=== PATIENT | female | born 1960 | race Caucasian/White ===

== ENCOUNTER 2020-05-09 07:45 | Outpatient (REF) | payer BC, SELFPAY ==
--- NOTE | 2020-05-09 07:52 | US_ITS ---
EXAMINATION: US THYROID CLINICAL INFORMATION: Thyroid nodule. COMPARISON: Ultrasound soft tissue head/neck thyroid dated 05/05/2019 and 12/19/2014 TECHNIQUE: Linear transducer charles-scale and color Doppler examination with attention to the region of the thyroid. FINDINGS: SIZE: Measurements of the thyroid lobes and nodules are given in sagittal, anteroposterior and transverse dimensions respectively. Right Thyroid Lobe: 5.1 x 1.7 x 1.6 cm, volume 7.2 mL. Previously 5.3 x 1.2 x 1.9 cm, volume 6.3 mL. Parenchyma: The gland echotexture is homogeneous. Thyroid vascularity is normal. Left Thyroid Lobe: 4.7 x 1.3 x 1.2 cm, volume 3.8 mL. Previously 4.7 x 1.4 x 1.1 cm, volume 3.8 mL. Parenchyma: The gland echotexture is homogeneous. Thyroid vascularity is normal. Isthmus: 0.37 cm in maximum AP dimension. Previously 0.34 cm. RIGHT THYROID LOBE: There are 2 nodules seen. 1. Location: Inferior. Size: 1.0 x 4.2 x 0.72 cm. Previous: 0.77 x 0.40 x 0.54 cm. Nodule characteristics: Heterogeneous, smoothly marginated and intranodular flow. 2. Location: Superior. Size: 0.43 x 0.40 x 0.45 cm. This nodule is new. Nodule characteristics: Heterogeneous, smoothly marginated with echogenic calcifications and intranodular flow. ISTHMUS: No nodules. LEFT THYROID LOBE: No nodules. NODES: No lymphadenopathy is seen in the tissue surrounding the thyroid gland. US/US thyroid IMPRESSION: Homogeneous mildly enlarged right thyroid lobe with subcentimeter small thyroid nodules in right lower lobe with minimal change in the largest nodule lower pole. Recommend continued ultrasound followup.
== END 2020-05-09 07:46 | disposition home or self-care (01) ==
LOC: HO.US 07:45
PROVIDERS: Visit Provider Nurse Practitioner Gerontology
DX: E04.1 Nontoxic single thyroid nodule (principal)
CPT/HCPCS: 76536

== ENCOUNTER → 2020-07-30 07:29 | Outpatient (BNVA) | payer BC, SELFPAY | PROVIDERS: PCP Internal Medicine; Visit Provider Internal Medicine Endocrinology, Diabetes & Metabolism ==

== ENCOUNTER 2020-08-23 08:28 | Outpatient (REF) | payer BC, SELFPAY ==
[2020-08-23 12:18] LABS: Free T4 (Free Thyroxine) 0.96 ng/dL (0.71-1.85)
[2020-08-26 16:52] LABS: Zinc 79 mcg/dL (60-130)
== END 2020-08-23 08:29 | disposition home or self-care (01) ==
LOC: HO.HMGCLDS 08:28
PROVIDERS: PCP Internal Medicine; Visit Provider Internal Medicine Endocrinology, Diabetes & Metabolism
DX: E03.9 Hypothyroidism, unspecified (principal); L65.9 Nonscarring hair loss, unspecified
CPT/HCPCS: 36415; 84439; 84443; 84630

== ENCOUNTER 2021-02-18 14:09 | Outpatient (REF) | payer BC, SELFPAY ==
[2021-02-18 15:03] LABS: Influenza A PCR NEGATIVE (Negative); Influenza B PCR NEGATIVE (Negative); Resp Syncy Virus RNA Qual PCR NEGATIVE (Negative); SARS COV2 PCR INHOUSE NEGATIVE (Negative)
== END 2021-02-18 14:10 | disposition home or self-care (01) ==
LOC: HO.LNP 14:09
PROVIDERS: Visit Provider Internal Medicine
DX: R43.9 Unspecified disturbances of smell and taste (principal); Z20.822 Contact with and (suspected) exposure to COVID-19
CPT/HCPCS: 0241U

== ENCOUNTER 2021-02-21 11:42 | Outpatient (REF) | payer BC, SELFPAY ==
[2021-02-21 12:57] LABS: Influenza A PCR NEGATIVE (Negative); Influenza B PCR NEGATIVE (Negative); Resp Syncy Virus RNA Qual PCR NEGATIVE (Negative); SARS COV2 PCR INHOUSE NEGATIVE (Negative)
== END 2021-02-21 11:43 | disposition home or self-care (01) ==
LOC: HO.LNP 11:42
PROVIDERS: Visit Provider Physician Assistant Medical
DX: Z20.822 Contact with and (suspected) exposure to COVID-19 (principal); J06.9 Acute upper respiratory infection, unspecified
CPT/HCPCS: 0241U

== ENCOUNTER 2021-12-18 15:13 | Outpatient (REF) | payer BC, SELFPAY ==
--- NOTE | ~2021-12-18 | US_ITS ---
EXAMINATION: US THYROID CLINICAL INFORMATION: Nontoxic multinodular goiter. COMPARISON: US thyroid 05/09/2020 and 05/05/2019. TECHNIQUE: Linear transducer grayscale and color Doppler examination with attention to the region of the thyroid. FINDINGS: SIZE: Measurements of the thyroid lobes and nodules are given in sagittal, anteroposterior and transverse dimensions respectively. Right Thyroid Lobe: 5.5 x 1.3 x 1.7 cm, volume 6.4 mL. Previously 5.1 x 1.7 x 1.6 cm, volume 7.2 mL. Parenchyma: The gland echotexture is homogeneous. Thyroid vascularity is normal. Left Thyroid Lobe: 4.4 x 1.4 x 1.2 cm, volume 3.9 mL. Previously 4.7 x 1.3 x 1.2 cm, volume 3.8 mL. Parenchyma: The gland echotexture is homogeneous. Thyroid vascularity is mildly increased. Isthmus: 0.3 cm in maximum AP dimension. Previously 0.4 cm. Estimated total number of nodules greater than or equal to 1 cm: 0. Therapeutic Dietitian nodules are described as follows: 1. Location: Inferior right isthmus. Size: 0.9 x 0.4 x 0.7 cm, volume 0.16 mL. Previously: 1.0 x 0.4 x 0.2 cm, volume 0.04 mL. Nodule characteristics: Composition: Solid (2). Echogenicity: Hypoechoic (2). Shape: Not taller than wide (0). Margins: Smooth (0). Echogenic Foci: None (0). ACR TI-RADS total points: 4 ACR TI-RADS category: 4 Change: No significant change from prior. NODES: No lymphadenopathy is seen in the tissue surrounding the thyroid gland. US/US thyroid IMPRESSION: -Thyroid normal in size. No adjacent adenopathy. -0.9 cm nodule inferior right isthmus (TI-RADS 4), no significant change. Reference: TR4 (4-6 points) -FNA if 1.5 cm or greater maximal dimension. -US followup in 1, 2, 3, and 5 years if 1.0 - 1.4 cm maximal dimension. -No followup if under 1.0 cm maximal dimension.
== END 2021-12-18 15:14 | disposition home or self-care (01) ==
LOC: HO.HMGCX 15:13
PROVIDERS: Visit Provider Internal Medicine Endocrinology, Diabetes & Metabolism
DX: E04.2 Nontoxic multinodular goiter (principal); E03.9 Hypothyroidism, unspecified
CPT/HCPCS: 76536

== ENCOUNTER 2021-12-20 07:13 | Outpatient (REF) | payer BC, SELFPAY ==
[2021-12-20 12:34] LABS: Free T4 (Free Thyroxine) 1.05 ng/dL (0.71-1.85)
== END 2021-12-20 07:14 | disposition home or self-care (01) ==
LOC: HO.HMGCLDS 07:13
PROVIDERS: PCP Internal Medicine; Visit Provider Internal Medicine Endocrinology, Diabetes & Metabolism
DX: E03.9 Hypothyroidism, unspecified (principal); E04.1 Nontoxic single thyroid nodule
CPT/HCPCS: 36415; 84439; 84443

== ENCOUNTER 2023-10-26 14:11 | Outpatient (AMB) | payer BC, SELFPAY ==
[2023-10-26 14:20] VITALS: BP 130/70; PULSE 88; TEMP 36.4; O2SAT 100
--- NOTE | 2023-10-26 14:20 | MHC.OFFWIV ---
Intake Vital Signs 10/26/23 14:20 Height 5 ft 7 in BP 130/70 Blood Pressure Location Rt brachial Position Sitting Pulse 88 Pulse Source Pulse Oximeter Temp 97.6 F Temp Source Temporal Artery Scan Pulse Oximetry (%) 100 Intake Visit Reasons: EP Itchy, scratchy, sore eyes Intake Note: pt is here for itchy, and sore eyes Patient Tobacco Use Status: Never used Tobacco Allergies No Known Allergies [No Known Allergies*] Allergy (Verified 10/26/23 14:36) Medication List - Last Reconciled 10/26/23 by MIKHAIL Juan fluticasone propionate 50 mcg/actuation (Flonase Allergy Relief) 2 sprays intranasal DAILY oxybutynin chloride ER 15 mg PO BID Do you need a note to return to daycare/school/sports/work: No HPI HPI Comments History of Present Illness Details Patient is a 63-year-old female in today for a sick visit patient reports that for the past 3 days she has developed dry, scratchy eyes. Patient has utilized aloe a eyedrops with no relief. Has no history of the same. Denies vision change. Denies headache. Patient also reports stuffy nose, postnasal drip, sore throat. In office strep test was negative. Will obtain URI swab. Patient at home medications are fluticasone in oxybutynin 15 mg p.o. b.i.d. [facility] Medical History (Updated 10/26/23 @ 15:12 by MIKHAIL Juan) Hair loss Thyroid nodule Hypothyroidism (acquired) Surgical History History of bladder surgery Hx of breast reduction, elective Family History Father Diabetes Mother COPD (chronic obstructive pulmonary disease) Ulcerative colitis IBS (irritable bowel syndrome) Social History Household Members: None Housing: Condominium Are you a primary chronic care nurse to a significant other at home: No Do you presently have visiting nurse or other home services: No 75 years or older and lives alone: No Alcohol intake: current Patient Tobacco Use Status: Never used Tobacco Review of Systems Const All systems reviewed & are unremarkable except as noted in HPI and below Denies chills, Denies fever(s) and Denies headache(s) Eyes Denies blurry vision, Denies eye discharge, Reports dry eyes, Reports itchy eyes and Reports other (redness) ENT Denies dizziness, Denies headache(s), Reports post nasal drip and Reports sore throat Card Denies chest pain and Denies dyspnea Resp Denies dyspnea Neuro Denies dizziness and Denies headache(s) Aller/Immun Reports itchy eyes Physical Exam Vital Signs: Last Vital Signs Temp 97.6 F 10/26/23 14:20 Pulse 88 10/26/23 14:20 BP 130/70 10/26/23 14:20 Pulse Ox 100 10/26/23 14:20 Const General: cooperative and no acute distress Orientation/consciousness: patient oriented x3 Limitations: no limitations HEENT Head: Yes normal to inspection Throat: Yes cobblestoning Eyes Eyelids: Yes eyelids normal Conjunctivae: conjunctival abnormal bilateral (some erythema) without discharge Sclerae: sclerae normal Corneas: corneas normal Pupils: Equal, round and reactive pupils present and Pupil accommodation reflex normal EOM: EOMs intact bilaterally Direct Ophthalmoscopy: normal light reflex and no photophobia Neuro General: patient oriented x3 Cranial nerves: Yes Equal, round and reactive pupils present Results AMB Rapid Strep AMB Rapid Strep Negative Last Edit by Morgan Cervantes CMA on 10/26/23 14:56 Assessment & Plan Assessment & Plan (1) Dry eyes, bilateral: Comment: Bleed patient's discomfort is due to dry eyes from the combination of potential viral illness, oxybutynin use, fluticasone use, and antihistamine eyedrop use. No discharge, skin erythema bilaterally. Unlikely be conjunctivitis at this time. Patient will be educated to refrain from using fluticasone, will be ordered to using lubricating eyedrops like systane. Patient has been educated on signs of worsening symptoms when to report to the office or when to present to the ED Code(s): H04.123 - Dry eye syndrome of bilateral lacrimal glands Plan: follow up in 3 days if no improvement. Orders: Orders SARS-CoV2/FLU/RSV Today J06.9 - Acute upper respiratory infection, unspecified AMB Rapid Strep Screen Today Z13.9 - Encounter for screening, unspecified Medications: New propylene glycol 0.6% (Systane Balance) 1 drp ophthalmic (eye) BID PRN 1.5 mL 0RF dry eye(s) Coding Level of Care Code Est Pt Level 3 (04033) Diagnoses Dry eyes, bilateral H04.123 Time Spent (min) 24
== END 2023-10-26 15:28 | disposition home or self-care (01) ==
PROVIDERS: PCP Internal Medicine; Visit Provider Nurse Practitioner Primary Care
DX: H04.123 Dry eye syndrome of bilateral lacrimal glands (principal); J02.9 Acute pharyngitis, unspecified
CPT/HCPCS: 87880; 99213

== ENCOUNTER 2023-10-26 16:19 | Outpatient (REF) | payer BC, SELFPAY ==
[2023-10-26 17:07] LABS: Influenza A PCR NEGATIVE (Negative); Influenza B PCR NEGATIVE (Negative); Resp Syncy Virus RNA Qual PCR NEGATIVE (Negative); SARS COV2 PCR INHOUSE NEGATIVE (Negative)
== END 2023-10-26 16:20 | disposition home or self-care (01) ==
LOC: HO.LNP 16:19
PROVIDERS: Visit Provider Nurse Practitioner Primary Care
DX: J06.9 Acute upper respiratory infection, unspecified (principal)
CPT/HCPCS: 0241U

== ENCOUNTER 2023-12-08 14:09 | Outpatient (REF) | payer BC, SELFPAY ==
--- NOTE | ~2023-12-08 | MM_ITS ---
EXAMINATION: MM SCREENING DIGITAL BREAST TOMOSYNTHESIS, BILATERAL CLINICAL INFORMATION: Screening. Asymptomatic. COMPARISON: Mammography: This study is compared with prior exams dating back to 2017. TECHNIQUE: Digital breast tomosynthesis is performed in both the craniocaudal and mediolateral oblique views along with computer-aided detection (CAD). Synthesized 2D images are generated from the tomosynthesis. FINDINGS: The breasts are almost entirely fatty (ACR BI-RADS breast composition Category a). There are no significant masses, abnormal calcifications, or other abnormalities. There are a few, coarse, bilateral calcifications. MM/MM tomosynthesis screening BI IMPRESSION: No mammographic evidence of malignancy. ASSESSMENT: BI-RADS BI-RADS 2 - Benign Findings RECOMMENDATION: Routine annual mammography screening. 1 year F/U This examination should not preclude the clinical evaluation of a suspicious palpable abnormality. This patient's information was entered into a reminder system with a target due date for their next mammogram. Electronically signed by: Radha Weathers MD 12/30/2023 08:29 PM EDT
--- NOTE | ~2023-12-08 | MM_ITS ---
EXAMINATION: BONE DENSITOMETRY CLINICAL INDICATION: Menopausal state. COMPARISON: This is the patient's baseline examination. TECHNIQUE: Using a [employer] DXA System (software version: 13.1) manufactured by [employer], dual-energy x-ray absorptiometry was performed of the lumbar spine and left hip. The images are of good technical quality. Summary results are attached. FINDINGS: LEFT FEMUR, NECK: BMD 0.760 g/cm2, Z-score -1.4, T-score -2.0, osteopenia. LEFT FEMUR, TOTAL: BMD 0.767 g/cm2, Z-score -1.6, T-score -1.9, osteopenia. AP SPINE L1-L4: BMD 0.907 g/cm2, Z-score -2.0, T-score -2.3, osteopenia. IDENTIFIED RISK FACTORS: Menopause. HISTORY OF FRACTURE: None listed. MEDICATIONS: Multivitamin. MM/XR DEXA axial skeleton IMPRESSION: 1. DIAGNOSIS: Osteopenia based on the lowest T-score value of -2.3 in the lumbar spine applying World Health Organization criteria. 2. 10-YEAR FRACTURE RISK PREDICTION, FRAX: Major osteoporotic fracture (clinical spine, forearm, hip or shoulder) 9.5%. Hip fracture 1.3%. 3. Treatment Recommendations: NOF guidelines recommend consideration for treatment in postmenopausal women and men age 50 and older presenting with the following: -A hip or vertebral (clinical or morphometric) fracture. -T-score less than or equal to -2.5 at the femoral neck or spine after appropriate evaluation to exclude secondary causes. -Low bone mass at the hip or spine and a 10-year fracture probability by FRAX of greater than or equal to 3% for hip fracture or greater than or equal to 20% for major osteoporotic fracture based on the [place] adapted WHO algorithm. 4. Other Recommendations: All treatment decisions require clinical judgment and consideration of individual patient factors, including patient preferences, comorbidities, previous drug use, risk factors not captured in the FRAX model (e.g. frailty, falls, vitamin D deficiency, increased bone turnover, interval significant decline in bone density) and possible under or overestimation of fracture risk by FRAX. Additional medical evaluation for secondary cause of low bone mineral density may be appropriate. FUTURE SCAN RECOMMENDATION: People with diagnosed cases of osteoporosis or at high risk for fracture should have regular bone mineral density tests. For patients eligible for Medicare, routine testing is allowed once every 2 years. The testing frequency can be increased to one year for patients who have rapidly progressing disease, those who are receiving or discontinuing medical therapy to restore bone mass, or have additional risk factors.
== END 2023-12-08 14:10 | disposition home or self-care (01) ==
LOC: HO.MAMMO 14:09
PROVIDERS: PCP Internal Medicine; Visit Provider Internal Medicine
DX: Z12.31 Encounter for screening mammogram for malignant neoplasm of breast (principal); Z13.820 Encounter for screening for osteoporosis; Z78.0 Asymptomatic menopausal state
CPT/HCPCS: 77063; 77067; 77080

== ENCOUNTER → 2023-12-08 14:15 | Outpatient (BNV) | payer BC, SELFPAY | PROVIDERS: PCP Internal Medicine; Visit Provider Radiology Diagnostic Radiology | DX: Z12.31 Encounter for screening mammogram for malignant neoplasm of breast (principal) | CPT/HCPCS: 77063; 77067 ==

== ENCOUNTER 2023-12-13 07:28 | Outpatient (REF) | payer BC, SELFPAY ==
[2023-12-13 10:32] LABS: MANUAL DIFF FLAG NO
[2023-12-13 10:43] LABS: Basophils Percent Auto 0.7 % (0-2); Eosinophils Absolute Auto 0.3 X10*3/uL (0.0-0.4); Eosinophils Percent Auto 4.7 % (0-4); Hematocrit 43.1 % (37.0-47.0); Hemoglobin 13.6 g/dl (12.0-16.0); Imm Gran Abs Auto 0.01 X10*3/uL (0.00-0.03); Imm Gran Pct Auto 0.2 % (0.0-0.4); Mean Corpuscular HGB Conc 31.6 g/dl (31.0-35.0); Mean Corpuscular Hemoglobin 27.9 pg (27.0-33.0); Mean Corpuscular Volume 88.5 fL (80.0-98.0); Mean Platelet Volume 10.6 fL (9.4-12.3); Monocytes Absolute Auto 0.4 X10*3/uL (0.1-1.2); Monocytes Percent Auto 6.7 % (2-11); Neutrophils Percent Auto 52.7 % (45-73); Platelet Count 240 X10*3/uL (160-400); Red Blood Count 4.87 X10*6/uL (4.20-5.50); Red Cell Distribution Width 13.3 % (11.0-16.0); White Blood Count 5.7 X10*3/uL (4.8-10.8)
[2023-12-13 11:22] LABS: Alanine Aminotransferase 18 U/L (0-31); Alkaline Phosphatase 74 U/L (39-117); Anion Gap 10 (12-20); Aspartate Amino Transferase 18 U/L (5-31); Bilirubin Total 0.4 mg/dL (0.0-1.0); Blood Urea Nitrogen 9 mg/dL (9-16); Calcium 9.5 mg/dL (8.4-10.2); Carbon Dioxide 26 mmol/L (22-29); Chloride 110 mmol/L (96-108); Cholesterol 228 mg/dL (<200); Estimated Glomerular Filt Rate > 60; Glucose Random 145 mg/dL (60-115); Potassium 4.2 mmol/L (3.3-5.1); Sodium 142 mmol/L (135-145); Total Protein 6.7 g/dL (6.5-8.0)
[2023-12-13 11:23] LABS: Free T4 (Free Thyroxine) 0.92 ng/dL (0.71-1.85); Thyroid Stimulating Hormone 1.18 uIU/mL (0.32-4.0); Vitamin D 25-OH Total 60.6 ng/mL (>30)
== END 2023-12-13 07:29 | disposition home or self-care (01) ==
LOC: HO.HMGCLDS 07:28
PROVIDERS: PCP Internal Medicine; Visit Provider Internal Medicine
DX: K21.9 Gastro-esophageal reflux disease without esophagitis (principal); E03.9 Hypothyroidism, unspecified
CPT/HCPCS: 36415; 80053; 82306; 82465; 84439; 84443; 85025

== ENCOUNTER 2024-11-01 16:06 | Outpatient (AMB) | payer BC, SELFPAY ==
--- NOTE | 2024-11-01 16:08 | MHC.PC.OV ---
Vital Signs 11/01/24 16:21 Height 5 ft 7 in Weight 109.316 kg BMI 37.7 BP 130/86 Blood Pressure Location Lt brachial Position Sitting Respiration 16 Pulse 87 Pulse Source Pulse Oximeter Temp 97.5 F Temp Source Temporal Artery Scan Pulse Oximetry (%) 99 Oxygen Delivery Method Room Air Intake Visit Reasons: Routine Croke Rn Acute Dialysis Required: No Accompanied by: Self / Same As Patient Allergies No Known Allergies (No Known Allergies*) Allergy (Verified 11/01/24 16:10) HPI HPI Comments History of Present Illness Details 64-year-old female with history of colon polyps, hypothyroidism, obstructive sleep apnea, GERD presents to the office today for management of chronic conditions, to establish care, and for annual physical exam. Works as a housing director construction. Lives with her pet cat. Occ alcohol use. no cigs. No illicit drugs. Occ THC gummy at bedtime. She has been following a low cab diet and walks for exercise. Hypothyroidism- reports was taken off levothyroxine. Reports symptoms including thinning hair SENTHIL- non compliant with cpap. Tried years ago and was unable to tolerate Concerns: Weight loss Insomnia- long standing, prior to menopause. Taking advil pm nightly, occasionally an addl OTC sleep aid. Health Maintenance: Due for mammo Due for colonoscopy Reviewed past medical, surgical, family and social hx ROS: General: No fevers, malaise, unintentional weight loss HEENT: No blurred vision, diplopia. No sore throat, nasal congestion, rhinorrhea, sinus pain, ear pain. No hearing loss Neck - no adenopathy Cardiovascular: No chest pain, palpitations, or leg edema Respiratory: No shortness of breath, wheezing, cough Breast: No pain, palpable lumps, nipple inversion GI: No dysphagia, odynophagia, globus sensation. No abdominal pain, nausea, vomiting, diarrhea, constipation, melena, hematochezia : No dysuria, hematuria, increased urinary frequency, decreased urinary output. [employer]: No abn vaginal bleeding or discharge MSK: No myalgia, back pain, arthralgias Neuro: No headaches, weakness, paresthesias Psych: no depression/anxiery. No AH/VH. No SI/HI. see hpi Skin: No rashes or lesions. see hpi EXAM: Constitutional - Awake and Alert, No apparent distress Eyes - PERRLA, EOMI. Anicteric Ears - external ears normal, canals clear, TMs intact and pearly charles with good cone of light Nose- septum midline, nares clear, no sinus tenderness Mouth/throat- mucosa moist, tongue and uvula midline, no erythema/edema or tonsillar adenopathy. Neck-trachea midline, thyroid symmetric without palpable nodules, no adenopathy Cardiovascular - S1S2, RRR, No edema Respiratory - Normal lung expansion, Normal respiratory effort, No respiratory distress, CTA bilaterally Gastrointestinal - NT / ND; +BS; No rebound or guarding - No CVA tenderness Extremities - no calf tenderness bilaterally, no swelling Musculoskeletal - Normal inspection, normal ROM Skin - Warm/Dry, no concerning lesions Neurological - Alert & oriented x3, CN II-XII in tact, 5/5 strength BUE and BLE, 2+ patellar reflexes, sensation intact Psychological - Appropriate affect [facility] Medical History (Updated 11/01/24 @ 16:44 by DAKSHA Garcias) Tubular adenoma Severe obesity (BMI 35.0-35.9 with comorbidity) Obstructive sleep apnea Hair loss Thyroid nodule Hypothyroidism (acquired) Surgical History (Updated 10/31/24 @ 15:48 by Kandice Lockwood) History of colonoscopy (~06/18/16) History of bladder surgery Hx of breast reduction, elective Family History Father Diabetes Mother COPD (chronic obstructive pulmonary disease) Ulcerative colitis IBS (irritable bowel syndrome) Social History Household Members: None Housing: Condominium Are you a primary lawn care professional to a significant other at home: No Do you presently have visiting nurse or other home services: No 75 years or older and lives alone: No Alcohol intake: current Patient Tobacco Use Status: Never used Tobacco Questionnaire PHQ-9 Over the last 2 weeks, how often have you been bothered by any of the following problems? 1. Little interest or pleasure in doing things: not at all 2. Feeling down, depressed, or hopeless: not at all 3. Trouble falling or staying asleep, or sleeping too much: several days 4. Feeling tired or having little energy: several days 5. Poor appetite or overeating: not at all 6. Feeling bad about yourself - or that you are a failure or have let yourself or your family down: not at all 7. Trouble concentrating on things, such as reading the newspaper or watching television: not at all 8. Moving or speaking so slowly that other people could have noticed. Or the opposite - being so fidgety or restless that you have been moving around a lot more than usual: not at all 9. Thoughts that you would be better off or of hurting yourself in some way: not at all Total score: 2 Source: Developed by Drs. Phillip Li, Amie Vasquez, Daniel Kulkarni and colleagues, with an educational liliana from [employer]. Thrive Questionnaire Date Thrive assessed: 11/01/24 I am a: Patient What is your living situation today?: I have a steady place to live Within the past 12 months, did the food you bought not last and you didn't have the money to get more?: Never true Within the past 12 months, did you worry whether your food would run out before you got money to buy more?: Never true Do you have trouble paying for medicines?: No Do you have trouble getting transportation to medical appointments?: No Do you have trouble paying your heating and electricity bill?: No Do you have trouble taking care of your child, family member or friend?: No Do you have trouble with day-to-day activities such as bathing, preparing meals, shopping, managing finances, etc.?: No Are you currently unemployed and looking for a job?: No Are you interested in more education?: No THRIVE Score: 0 ABHI-7 AMB Questionnaire ABHI-7 Date ABHI - 7 assessed: 11/01/24 Feeling nervous, anxious, or on edge: 0 = Not at all Not being able to stop or control worryin = Not at all Worrying too much about different things: 0 = Not at all Trouble relaxin = Not at all Being so restless that it is hard to sit still: 0 = Not at all Becoming easily annoyed or irritable: 0 = Not at all Feeling afraid as if something awful might happen: 0 = Not at all Total ABHI-7 score (0-4 normal; 5-9 mild; 10-14 moderate; 15-21 severe): 0 Source: Developed by Drs. Phillip Li, Amie Vasquez, Daniel Kulkarni and colleagues, with an educational liliana from [employer]. Physical exam (Primary Care) Vital Signs: Last Vital Signs Temp 97.5 F 11/01/24 16:21 Pulse 87 11/01/24 16:21 Resp 16 11/01/24 16:21 BP 130/86 11/01/24 16:21 Pulse Ox 99 11/01/24 16:21 Oxygen Delivery Method Room Air 11/01/24 16:21 BMI result Body Mass Index 37.7 Tobacco/Smoking Status: Tobacco use Status Patient Tobacco Use Status Never used Tobacco 11/01/24 16:09 PHQ-9: PHQ-9 Score PHQ-9: Total score 2 11/01/24 16:33 Thrive Assessment: Date of Thrive Assessment Date Thrive assessed 11/01/24 11/01/24 16:25 Coding Level of Care Code Est Pt Level 4 (76532) New Pt Prev Care 40-64y(29760) Diagnoses Routine medical exam Z00.00 Hypothyroidism (acquired) E03.9 Obstructive sleep apnea G47.33 Severe obesity (BMI 35.0-35.9 with comorbidity) E66.01; Z68.35 Assessment & Plan Assessment & Plan (1) Routine medical exam: Code(s): Z00.00 - Encounter for general adult medical examination without abnormal findings Plan: 64 year old female presenting for annual exam. Plan as below (2) Hypothyroidism (acquired): Code(s): E03.9 - Hypothyroidism, unspecified Category: Medical Plan: TSH w/ reflex free t4 ordered (3) Obstructive sleep apnea: Code(s): G47.33 - Obstructive sleep apnea (adult) (pediatric) Category: Medical Plan: Will repeat sleep study. Discussed important of SENTHIL management to cardiovascular event, afib, sudden cardiac (4) Severe obesity (BMI 35.0-35.9 with comorbidity): Code(s): E66.01 - Morbid (severe) obesity due to excess calories; Z68.35 - Body mass index [BMI] 35.0-35.9, adult Category: Medical Plan: Weight loss efforts encouraged- discussed healthy diet as well as exercise goals. Would benefit from weight loss medications given severe obesity and SENTHIL. Zepound 2.5mg ordered Plan Routine screening labs as ordered below Continue with screening mammograms, Pap smears, colonoscopies Continue following for annual skin exams and use sun protection Annual eye exams Wear seat belt in car Recommend regular exercise and healthy diet Follow up in 1 month Orders: Orders Basic Metabolic Panel 11/01/24 Z00.00 - Encounter for general adult medical examination without abnormal findings Complete Blood Count Auto Diff 11/01/24 Z00.00 - Encounter for general adult medical examination without abnormal findings Hemoglobin A1c 11/01/24 Z00.00 - Encounter for general adult medical examination without abnormal findings Lipid Panel 11/01/24 Z00.00 - Encounter for general adult medical examination without abnormal findings Liver Panel 11/01/24 Z00.00 - Encounter for general adult medical examination without abnormal findings Thyroid Stimulating Hormone 11/01/24 Z00.00 - Encounter for general adult medical examination without abnormal findings Free T4 (Free Thyroxine) 11/01/24 Z00.00 - Encounter for general adult medical examination without abnormal findings RT home sleep study 11/01/24 E66.01 - Morbid (severe) obesity due to excess calories, G47.33 - Obstructive sleep apnea (adult) (pediatric), Z68.35 - Body mass index [BMI] 35.0-35.9, adult MM tomosynthesis screening BI 11/01/24 Z12.31 - Encounter for screening mammogram for malignant neoplasm of breast Referrals Gastroenterology Referral D36.9 - Benign neoplasm, unspecified site, Z12.11 - Encounter for screening for malignant neoplasm of colon Medications: New trazodone 25 - 50 mg (0.5 - 1 x 50 mg) PO BEDTIME PRN 90 tabs 1RF sleep ondansetron 4 mg PO Q8H PRN 30 tabs 0RF nausea and vomiting tirzepatide (weight loss) (Zepbound) for 4 weeks 2.5 mg (0.5 mL) subcut QWEEK 2 mL 0RF E66.01 - Morbid (severe) obesity due to excess calories, G47.33 - Obstructive sleep apnea (adult) (pediatric), Z68.35 - Body mass index [BMI] 35.0-35.9, adult
[2024-11-01 16:21] VITALS: BP 130/86; PULSE 87; RESP 16; TEMP 36.4; O2SAT 99; BMI 37.7
== END 2024-11-01 16:56 | disposition home or self-care (01) ==
LOC: HO.HMCHD 16:07
PROVIDERS: PCP Physician Assistant; Visit Provider Physician Assistant
DX: Z00.00 Encounter for general adult medical examination without abnormal findings (principal); E03.9 Hypothyroidism, unspecified; G47.33 Obstructive sleep apnea (adult) (pediatric); E66.01 Morbid (severe) obesity due to excess calories; Z68.35 Body mass index [BMI] 35.0-35.9, adult

== ENCOUNTER 2024-12-12 15:23 | Outpatient (AMB) | payer BC, SELFPAY ==
--- NOTE | 2024-12-12 15:25 | A.OFFPC_ITS ---
Vital Signs 12/12/24 15:31 Height 5 ft 7 in Weight 104.78 kg BMI 36.2 BP 128/92 H Respiration 14 Pulse 85 Pulse Source Pulse Oximeter Temp 97.5 F Temp Source Temporal Artery Scan Pulse Oximetry (%) 98 Oxygen Delivery Method Room Air Intake Visit Reasons: 1 month f/u - [employer]-see comments Policy Loan Calculator Required: No Accompanied by: Self / Same As Patient Allergies No Known Allergies (No Known Allergies*) Allergy (Verified 12/12/24 15:30) Medication List - Last Reconciled 12/12/24 by DAKSHA Garcias calcium carbonate (Calcium 500) 500 mg PO DAILY diphenhydramine HCl (NightTime Sleep Aid (diphenhydramine)) 25 mg PO BEDTIME PRN fluticasone propionate 50 mcg/actuation (Flonase Allergy Relief) 2 sprays intranasal DAILY ibuprofen (Advil) 200 mg PO Q6H PRN ibuprofen-diphenhydramine cit 200-38 mg (Advil PM) 1 cap PO BEDTIME multivitamin 1 tab PO DAILY ondansetron 4 mg PO Q8H PRN oxybutynin chloride ER 15 mg PO BID propylene glycol 0.6% (Systane Balance) 1 drp ophthalmic (eye) BID PRN tirzepatide (weight loss) (Zepbound) 2.5 mg (0.5 mL) subcut QWEEK trazodone 25 - 50 mg (0.5 - 1 x 50 mg) PO BEDTIME PRN HPI HPI Comments History of Present Illness Details 64 year old female with SENTHIL noncompliant with cpap, hypothyroidism, and severe obesity presenting to the office for follow up. Started on zepbound 6 weeks ago. Doing very well. Has constipation but managemnet with stool softeners and prn dulcolax, but still only twice weekly. Occ nausea but no vomiting. Decreased appetite but more hungry last few days. Mostly protein and veg. Does a protein shake in the morning. Smaller portions. Has lost almost 12 pounds since last visit. ROS: General: No fevers, malaise, unintentional weight loss HEENT: No blurred vision, diplopia. No sore throat, nasal congestion, rhinorrhea, sinus pain, ear pain Cardiovascular: No chest pain, palpitations, or leg edema Respiratory: No shortness of breath, wheezing, cough GI: No abdominal pain, nausea, vomiting, diarrhea, constipation, melena, hematochezia : No dysuria, hematuria, increased urinary frequency, decreased urinary output MSK: No myalgia, back pain Neuro: No headaches, weakness, paresthesias Skin: No rashes or lesions EXAM: Constitutional - Awake and Alert, No apparent distress Eyes - PERRL Cardiovascular - S1S2, RRR, No edema Respiratory - Normal lung expansion, Normal respiratory effort, No respiratory distress, CTA bilaterally Extremities - no calf tenderness bilaterally, no swelling Skin - Warm/Dry Neurological - Alert & oriented x3 Psychological - Appropriate affect [facility] Medical History (Updated 12/17/24 @ 15:05 by DAKSHA Garcias) Tubular adenoma Severe obesity (BMI 35.0-35.9 with comorbidity) Obstructive sleep apnea Hair loss Thyroid nodule Hypothyroidism (acquired) Surgical History (Updated 10/31/24 @ 15:48 by Kandice Lockwood) History of colonoscopy (~06/18/16) History of bladder surgery Hx of breast reduction, elective Family History Father Diabetes Mother COPD (chronic obstructive pulmonary disease) Ulcerative colitis IBS (irritable bowel syndrome) Social History Household Members: None Housing: Condominium Are you a primary foster care case manager to a significant other at home: No Do you presently have visiting nurse or other home services: No 75 years or older and lives alone: No Alcohol intake: current Patient Tobacco Use Status: Never used Tobacco Questionnaire Thrive Questionnaire Date Thrive assessed: 11/01/24 ABHI-7 AMB Questionnaire ABHI-7 Date ABHI - 7 assessed: 11/01/24 Source: Developed by Drs. Phillip Li, Amie Vasquez, Daniel Kulkarni and colleagues, with an educational liliana from [employer]. Physical exam (Primary Care) Vital Signs: Last Vital Signs Temp 97.5 F 12/12/24 15:31 Pulse 85 12/12/24 15:31 Resp 14 12/12/24 15:31 BP 128/92 H 12/12/24 15:31 Pulse Ox 98 12/12/24 15:31 Oxygen Delivery Method Room Air 12/12/24 15:31 BMI result Body Mass Index 36.2 Tobacco/Smoking Status: Tobacco use Status Patient Tobacco Use Status Never used Tobacco 12/12/24 15:28 Thrive Assessment: Date of Thrive Assessment Date Thrive assessed 11/01/24 12/12/24 15:28 Coding Level of Care Code Est Pt Level 3 (83197) Complex EM visit Add On G2211 Diagnoses Severe obesity E66.01 Assessment & Plan Assessment & Plan (1) Severe obesity: Code(s): E66.01 - Morbid (severe) obesity due to excess calories Category: Medical Plan: Commended on weight loss. Will continue zepbound at current dose. If plateauing will contact office to increase dose. Continue with current diet and increase exercise. Add fiber supplement to help with BM and drink plent of water. Zofran prescribed for nausea Plan Follow up in 4 months Medications: Refilled ondansetron 4 mg PO Q8H PRN 30 tabs 0RF nausea and vomiting
[2024-12-12 15:31] VITALS: BP 128/92; PULSE 85; RESP 14; TEMP 36.4; O2SAT 98; BMI 36.2
== END 2024-12-12 15:55 | disposition home or self-care (01) ==
LOC: HO.HMCHD 15:24
PROVIDERS: PCP Physician Assistant; Visit Provider Physician Assistant
DX: E66.01 Morbid (severe) obesity due to excess calories (principal)

== ENCOUNTER 2025-01-11 16:15 | Outpatient (REF) | payer BC, SELFPAY ==
--- NOTE | ~2025-01-11 | MM_ITS ---
EXAMINATION: MM SCREENING DIGITAL BREAST TOMOSYNTHESIS, BILATERAL CLINICAL INFORMATION: Screening. Asymptomatic. COMPARISON: Mammography: Comparison is made with available priors TECHNIQUE: Digital breast mammography with tomosynthesis is performed in both the craniocaudal and mediolateral oblique views along with computer-aided detection (CAD). FINDINGS: The breasts are almost entirely fatty (ACR BI-RADS breast composition Category a). Bilateral reduction mammoplasty. There are no significant masses, abnormal calcifications, or other abnormalities. MM/MM tomosynthesis screening BI IMPRESSION: No mammographic evidence of malignancy. ASSESSMENT: BI-RADS BI-RADS 2 - Benign Findings RECOMMENDATION: Routine annual mammography screening. 1 year F/U This examination should not preclude the clinical evaluation of a suspicious palpable abnormality. This patient's information was entered into a reminder system with a target due date for their next mammogram. Electronically signed by: Aubrie Sierra DO 01/16/2025 09:53 AM EDT
== END 2025-01-11 16:16 | disposition home or self-care (01) ==
LOC: HO.MAMMO 16:15
PROVIDERS: PCP Physician Assistant; Visit Provider Physician Assistant
DX: Z12.31 Encounter for screening mammogram for malignant neoplasm of breast (principal)
CPT/HCPCS: 77063; 77067

== ENCOUNTER → 2025-01-11 16:30 | Outpatient (BNV) | payer BC, SELFPAY | PROVIDERS: PCP Physician Assistant; Visit Provider Internal Medicine | DX: Z12.31 Encounter for screening mammogram for malignant neoplasm of breast (principal) | CPT/HCPCS: 77063; 77067 ==

== ENCOUNTER → 2025-01-16 07:37 | Outpatient (BNV) | payer BC, SELFPAY | PROVIDERS: PCP Physician Assistant; Visit Provider Internal Medicine | DX: G47.33 Obstructive sleep apnea (adult) (pediatric) (principal) | CPT/HCPCS: 95806 ==

== ENCOUNTER → 2025-01-16 15:26 | Outpatient (REF) | payer BC, SELFPAY ==
--- OUTSIDE RECORDS SUMMARY | 2020-01-04 11:15 | XMS_ITS | Continuity of Care Document ---
Author Organization [facility] Address [address] [place] [address] Phone Care Team Providers Care Planning Aide Name Role Phone Gabriela RDH Jory Unavailable Unavailable 1 Transformation Analyst, UMSD Unavailable Unavailable Allergies, Adverse Reactions, Alerts Substance Reaction Status Criticality No Known Allergies Active No Inform ation No Known Allergies Active No Inform ation Medications Medication Instructions Dosage Effective Dates (start - stop) Status Comments omeprazole 40 mg capsule,delayed release take 1 capsule by oral route every day before a meal 40 MG - No Longer Active Procedures Procedure Date Bitewings Four Films Prophylaxis Adult Oral Hygiene Instructions High Caries Risk Dx Sealant Ineligible Periodic Oral Evaluation Established Pat ient PULSE OXIMETRY TESTING INTERMEDIATE VISIT EST PATIENT 19 TOBACCO NON-USER SYST BP <130 MM HG DIAST BP <80 MM HG RVW MEDS BY RX/DR IN RCRD EKG WITH INTERPRETATION AND REPORT IMMUNIZATION ADMINISTRATION, ONE VACCINE INF Virus Vaccine (IIV4) Split Virus 0.5 mL Preservative Free Intraoral Complete Series (Including Bit ewings) Prophylaxis Adult Oral Hygiene Instructions Moderate Caries Risk Dx Sealant Ineligible Comprehensive Oral Evaluation New Or Est ablished LIMITED VISIT- NEW PATIENT Advance Directives Directive Yes / No Effective Date File Name Resuscitation Not Answered N/A N/A Life Support Not Answered N/A N/A Intubation Not Answered N/A N/A Antibiotics Not Answered N/A N/A IV Fluid Support Not Answered N/A N/A Tube Feed Not Answered N/A N/A Other Directive N/A N/A WARNING:The information contained in this section is historical and is provided for information only and does not constitute a legal document or any assurance that the information is still accurate. Please verify the information with the boyd of the legal document before using it for clinical purposes. Encounters Encounter Description Practice Location Reason(s) For Visit Diagnoses Date Provider Providers Copied on Encounter Sierra Simon, [address] [place], [id number] , [place] tel: [phone] [facility] Encounter for screening for dental disordersChronic gingivitis, plaque inducedRisk for dental caries, highEncounter for dental exam and cleaning w/o abnormal findings 0 Gabriela Corley. [address] [place], [address], [place]. Consulting Provider: [facility] 1 Transformation Analyst, [address] [place], [address]. [phone] INTERMEDIATE VISIT EST PATIENT Sierra Simon, [address] [place], [place], [id number] , [place] tel: [phone] [facility] cough (chief complaint) Shortness of breathChest tightnessForeign body sensation in throat 9 Dawna Mccracken. [address] [place], [address], [place]. tel:[phone] [facility], [address] [place], [place], [id number] , [place] tel: [phone] [facility] Encounter for screening mammogram for breast cancer 9 Baldo Acevedo. [address] [place], [address], [place]. tel:[phone] [facility], [address] [place], [place], [id number] , [place] tel: [phone] [facility] Encounter for screening for dental disordersDeposits [accretions] on teethRisk for dental caries, moderateEncounter for dental exam and cleaning w abnormal findings 9 Lisbeth Rodriguez. . LIMITED VISIT- NEW PATIENT Sierra Simon, [address] [place], [place], [id number] , tel: [phone] [facility] Tick bite (chief complaint) Body mass index (BMI) 27.0-27.9, adultTick bite, initial encounterExercise counselingDietary counseling and surveillanceRash and other nonspecific skin eruption 9 Baldo Acevedo. [address] [place], [address], [place]. tel:[phone] Family History Family Member Type Diagnosis Age At Onset Mother Problem (finding) malignant neop lasm of breast in first degree relative 60 Father Problem (finding) prostate cancer (Cause Of ) Mother Problem (finding) malignant neop lasm of liver (Cause Of ) Mother Problem (finding) malignant neoplasm of o vary Immunizations Vaccine Date Status Comments Flu IIV4 Preservative Free administered N ote: 12/08/2018. Malika PRINCE. ; Source: New Immunization Record Tdap administered Source: Other R egistry Payers Payer name Insurance type Covered green party ID Authorphonga ciera(s) D [facility] Community Plan CI [id number] Social History Type Description Quantity Date Captured Comments Alcohol Use Details Unknown Caffeine Use Details Unknown Tobacco Use Status No Information Smoking Status Never smoker Sex Female Sexual Orientation Straight or heterosexual Gender Identity Female Vital Signs Date / Time: Height Weight BMI Pulse Rate Blood Pressure Temperature Respiratory Rate Body Surface Area Head Circumference Head Circ. Percentile Wt./Presley. Percentile BMI percentile Pulse Ox Inhaled Ox 3:23 PM 110/68 mm[Hg] Chief Complaint And Reason For Visit No Information Reason For Referral Reason For Referral No Information Plan Of Treatment Date Type Action Status Goal Mammogram. Due on 0 due Goal HIV screen. Due on 19 due Goal Depression screening. Due on due Goal Pap/HPV testing. Due on due Goal FOBT. Due on due Goal Colonoscopy. Due on 023 due Goal Zoster vaccine (1st). Due on due Goal Height Measurement. Due on due Goal Pap/HPV testing. Due on due Goal Mammogram. Due on 8 due Goal Depression screening. Due on due Goal Colonoscopy. Due on 023 due Goal FOBT. Due on due Goal HIV screen. Due on 19 due Goal Depression screening. Due on due Goal Colonoscopy. Due on 019 due Goal Mammogram. Due on 9 due Goal Pap/HPV testing. Due on due Goal FOBT. Due on due Referral Ordered: Mammogram Screening (Bilateral) Appointment date/timeframe: 11/28/2018 ordered Patient Education Learning About Dental C are completed History Of Present Illness Encounter Date Complaint History Of Prese nt Illness cough (comments) States that she has phlegm, says she always has phlegm. States she has chest tightness and feels short of breath. No nasal congestion. Feels great overall. States never has shortness of breath. Feels also that she has issues swallowing food. Overall does not feel like she has heartburn. No obvious reflux. Says she eats healthy, does not smoke. Drinks tea. Does not drink enough water. Did discuss the possibility of needing a EGD. Patient does not want to apply for medicaid at this time. Says she would rather try acid boss miner first. Agreeable to have EKG done now. Says the chest tightness is new - started Wednesday. Says she has had food getting stuck for quite some time. cough Onset: gradual. Severity: mild-moderate. It occurs persistently. Associated symptoms include cough. Tick bite The symptoms beg an 2 days ago. The symptoms are reported as being mild. She states the symptoms are acute. Pt here to establish care and for tick bite of L lower abdomen. She reports she [place] walking [place] and noticed a tick on her abdomen later that evening. She removed the tick and doesn't think it was fully embedded. Today she reports she woke up and noticed increased redness/erythema in the area of the bite. Denies fever, nausea, vomiting. Functional Status Date Functional Assessmen t No Information Instructions Date Instruction Additional Infor ellie As discussed we will do the acid boss miner and if your symptoms do not improve, it would be best to you been seen by a specialist for an EGD. Related to Shortness of breath - Will treat with do xycycline prophylactically to prevent Lyme's disease. - Take full course. Drink lots of water. Take antibiotic with food.Follow up as needed Related to Tick bite, initial encounter Assessments Type Assessment Date assessment Encounter for screening for dent al disorders Patient Care Teams Name Effective Dates (start - stop) Status Members No Information
== END ==
LOC: HO.SL 15:26
PROVIDERS: PCP Physician Assistant; Visit Provider Physician Assistant
DX: G47.33 Obstructive sleep apnea (adult) (pediatric) (principal); E66.01 Morbid (severe) obesity due to excess calories; Z68.35 Body mass index [BMI] 35.0-35.9, adult
CPT/HCPCS: 95806

== ENCOUNTER 2025-04-09 15:49 | Outpatient (AMB) | payer BC, SELFPAY ==
--- OUTSIDE RECORDS SUMMARY | 2025-04-04 11:20 | XMS_ITS ---
Author Organization [facility] Address [address] [place] [address] Care Team Providers Care Elevator Worker Name Role Phone KIM PELAYO Primary Care Provider Phillip Kenny [phone] REASON FOR VISIT Patient presents today for COLON SCREENING Encounters Encounter Location Date Provider Diagnosis [facility] [address] [place] [address] 04/04/2025 Phillip Orozco Plan Of Treatment Next Appt Details Provider Name:Phillip Orozco , 08/08/2025 04:20:00 PM, [address], [address], [place], [address], Progress Notes * CARMELA MGSHARONADOB: 0 (65 yo F)Acc No.[id number]:04/04/2025 Progress Notes Patient: AYAD MATOS Provider: Myles Orozco MD :1960 A ge:64 Y S ex:Female Date:04/04/2025 Address:[address] [place] [address] [id number] Pcp:KIM PELAYO Subjective: * Chief Complaints: * P atient presents today for COLON SCREENING * The named appointment provid er may or may not be the originator of this progress note, and it is not deemed complete until electronically signed by the appointment provider. Sign off status: Pending * Provider: Myles Orozco MD Date: 06/05/2024 Generated for Chas rogers/Paula/Michelleitting on: 06/10/2024 10:14 PM EST
[2025-04-09 16:06] VITALS: BP 110/60; PULSE 105; TEMP 36.3; O2SAT 99; BMI 32.1
--- NOTE | 2025-04-09 16:06 | MHC.PC.OV ---
Vital Signs 04/09/25 16:06 Height 5 ft 7 in Weight 92.986 kg BMI 32.1 BP 110/60 Pulse 105 H Pulse Source Pulse Oximeter Temp 97.3 F Temp Source Temporal Artery Scan Pulse Oximetry (%) 99 Oxygen Delivery Method Room Air Intake Visit Reasons: 4 month f/u Outdoor Recreation Specialist Required: No Accompanied by: Self / Same As Patient Allergies No Known Allergies (No Known Allergies*) Allergy (Verified 04/09/25 16:07) Medication List - Last Reconciled 04/09/25 by DAKSHA Garcias biotin 5 mg PO DAILY calcium carbonate (Calcium 500) 500 mg PO DAILY diphenhydramine HCl (NightTime Sleep Aid (diphenhydramine)) 25 mg PO BEDTIME PRN fluticasone propionate 50 mcg/actuation (Flonase Allergy Relief) 2 sprays intranasal DAILY ibuprofen (Advil) 200 mg PO Q6H PRN ibuprofen-diphenhydramine cit 200-38 mg (Advil PM) 1 cap PO BEDTIME multivitamin 1 tab PO DAILY ondansetron 4 mg PO Q8H PRN oxybutynin chloride ER 15 mg PO BID propylene glycol 0.6% (Systane Balance) 1 drp ophthalmic (eye) BID PRN tirzepatide (weight loss) (Zepbound) 5 mg (0.5 mL) subcut QWEEK trazodone 25 - 50 mg (0.5 - 1 x 50 mg) PO BEDTIME PRN Tobacco use date assessed: 04/09/25 Fall risk assessment: No Falls in past year Last assessed Fall Risk: 04/09/25 Dental Screening Dental Screen Date: 04/09/25 Did you have a dental visit in the last 12 months?: Yes Did you have a dental problem in the last 6 months where you did not have access to dental care?: No HPI HPI Comments History of Present Illness Details 64-year-old female with history of colon polyps, hypothyroidism, obstructive sleep apnea, GERD presents to the office today for management of chronic conditions, to establish care, and for annual physical exam. Works as a [employer]. Lives with her pet cat. Occ alcohol use. no cigs. No illicit drugs. Occ THC gummy at bedtime. She has been following a low cab diet and walks for exercise. Hypothyroidism- no longer taking levothyroxine. Due for labs SENTHIL- updated sleep study showed mild SENTHIL. Upcoming appt for cpap fitting Obesity- Has lost 40lb with the help of zepbound. Has been working hard at dietary modifications as well and walks regularly for exercise. Reports occasional fatigue with the Zepbound but has adjusted the schedule which has been helpful. Does still occasionally wake up nauseous and requesting refill on ondansetron Osteopenia-FRAX 9.2%. Taking calcium and vitamin-D, walking for exercise but no other weight-bearing exercise. Concerns: None Health Maintenance: Mammo 12/2024, 1 year follow up Upcoming appt, 7 year follow up DEXA scan up-to-date ROS: see hpi EXAM: Constitutional - Awake and Alert, No apparent distress Eyes - PERRL Cardiovascular - S1S2, RRR, No edema Respiratory - Normal lung expansion, Normal respiratory effort, No respiratory distress, CTA bilaterally Extremities - no calf tenderness bilaterally, no swelling Skin - Warm/Dry Neurological - Alert & oriented x3 Psychological - Appropriate affect PFSH Medical History Tubular adenoma Severe obesity (BMI 35.0-35.9 with comorbidity) Obstructive sleep apnea Hair loss Thyroid nodule Hypothyroidism (acquired) Surgical History History of colonoscopy (~06/18/16) History of bladder surgery Hx of breast reduction, elective Family History (Updated 04/09/25 @ 16:21 by Miladys Vazquez MA) Father Diabetes Mother COPD (chronic obstructive pulmonary disease) Ulcerative colitis IBS (irritable bowel syndrome) Social History Household Members: None Housing: Condominium Are you a primary landcare officer to a significant other at home: No Do you presently have visiting nurse or other home services: No 75 years or older and lives alone: No Alcohol intake: current Patient Tobacco Use Status: Never used Tobacco e-Cigarette/Vaping Use: Never Used service: No Current occupational status: retired Cognitive needs: No Hearing needs: No Vision needs: Yes (rx glasses) Questionnaire PHQ-9 Over the last 2 weeks, how often have you been bothered by any of the following problems? 1. Little interest or pleasure in doing things: not at all 2. Feeling down, depressed, or hopeless: not at all 3. Trouble falling or staying asleep, or sleeping too much: not at all 4. Feeling tired or having little energy: not at all 5. Poor appetite or overeating: not at all 6. Feeling bad about yourself - or that you are a failure or have let yourself or your family down: not at all 7. Trouble concentrating on things, such as reading the newspaper or watching television: not at all 8. Moving or speaking so slowly that other people could have noticed. Or the opposite - being so fidgety or restless that you have been moving around a lot more than usual: not at all 9. Thoughts that you would be better off or of hurting yourself in some way: not at all Total score: 0 Depression Screening Interpretation: Negative Depression Screening Done: Yes Source: Developed by Drs. Phillip Li, Amie Vasquez, Daniel Kulkarni and colleagues, with an educational liliana from [employer]. Thrive Questionnaire Date Thrive assessed: 04/09/25 I am a: Patient Within the past 12 months, did the food you bought not last and you didn't have the money to get more?: Never true Within the past 12 months, did you worry whether your food would run out before you got money to buy more?: Never true Do you have trouble paying for medicines?: No Do you have trouble getting transportation to medical appointments?: No Do you have trouble paying your heating and electricity bill?: No Do you have trouble taking care of your child, family member or friend?: No Do you have trouble with day-to-day activities such as bathing, preparing meals, shopping, managing finances, etc.?: No Are you currently unemployed and looking for a job?: No Are you interested in more education?: No THRIVE Score: 0 AUDIT C Alcohol Use Questionnaire (AUDIT-C) 2. How many drinks containing alcohol do you have on a typical day when you are drinking?: 1 or 2 3. How often do you have six or more drinks on one occasion?: Less than monthly Total Score: 1 ABHI-7 AMB Questionnaire ABHI-7 Date ABHI - 7 assessed: 04/09/25 Feeling nervous, anxious, or on edge: 0 = Not at all Not being able to stop or control worryin = Not at all Worrying too much about different things: 0 = Not at all Trouble relaxin = Not at all Being so restless that it is hard to sit still: 0 = Not at all Becoming easily annoyed or irritable: 0 = Not at all Feeling afraid as if something awful might happen: 0 = Not at all Total ABHI-7 score (0-4 normal; 5-9 mild; 10-14 moderate; 15-21 severe): 0 Source: Developed by Drs. Phillip Li, Amie Vasquez, Daniel Kulkarni and colleagues, with an educational liliana from [employer]. Physical exam (Primary Care) Vital Signs: Last Vital Signs Temp 97.3 F 04/09/25 16:06 Pulse 105 H 04/09/25 16:06 Pulse Ox 99 04/09/25 16:06 Oxygen Delivery Method Room Air 04/09/25 16:06 BMI result Body Mass Index 32.1 Tobacco/Smoking Status: Tobacco use Status Tobacco use date assessed 04/09/25 04/09/25 16:08 Patient Tobacco Use Status Never used Tobacco 04/09/25 16:08 e-Cigarette/Vaping Use Never Used 04/09/25 16:08 PHQ-9: PHQ-9 Score PHQ-9: Total score 0 04/09/25 16:22 Depression Screening Interpretation: Negative Thrive Assessment: Date of Thrive Assessment Date Thrive assessed 04/09/25 04/09/25 16:18 Coding Level of Care Code Est Pt Level 4 (91975) Add On Problem Visit Only Diagnoses Hypothyroidism (acquired) E03.9 Obstructive sleep apnea G47.33 Obesity E66.9 Assessment & Plan Assessment & Plan (1) Hypothyroidism (acquired): Code(s): E03.9 - Hypothyroidism, unspecified Category: Medical Plan: TSH w/ reflex free t4 ordered (2) Obstructive sleep apnea: Code(s): G47.33 - Obstructive sleep apnea (adult) (pediatric) Category: Medical Plan: Sleep study shows mild obstructive sleep apnea. Follow-up for CPAP fitting and strict compliance is advised (3) Obesity: Code(s): E66.9 - Obesity, unspecified Category: Medical Plan: Commended on weight loss thusfar. Encouraged to continue with zepbound as well as conservative measures with diet and exercise as she has been doing. Concerns about insurance coverage in the near future will be addressed as needed come 05/27. Plan Follow up in the office in 6 months, labs to be completed today Medications: Refilled ondansetron 4 mg PO Q8H PRN 30 tabs 0RF nausea and vomiting
--- OUTSIDE RECORDS SUMMARY | 2025-04-09 22:14 | XMS_ITS | Patient Health Record ---
Author Organization [facility] Address [address] [place] [address] Care Team Providers Care Egg Setter Name Role Phone KIM PELAYO Primary Care Provider Phillip Kenny [phone] Reason For Referral No Information Encounters Encounter Location Date Provider Diagnosis [facility] [address] [place] [address] 04/02/2025 Phillip Orozco Plan Of Treatment Next Appt Details Provider Name:Phillip Orozco , 08/08/2025 04:20:00 PM, [address], [address], [place], [address], Insurance Providers Payer Name Payer Address Payer Phone Subscriber Number Group Number Insured Name Patient Relationship to Insured Coverage Start Date Coverage End Date [facility] [address] [place] [address] [id number] [id number] MG Self - patient is the insured
== END 2025-04-09 16:39 | disposition home or self-care (01) ==
LOC: HO.HMCHD 15:49
PROVIDERS: PCP Physician Assistant; Visit Provider Physician Assistant
DX: E03.9 Hypothyroidism, unspecified (principal); G47.33 Obstructive sleep apnea (adult) (pediatric); E66.9 Obesity, unspecified

== ENCOUNTER 2025-04-23 10:27 | Outpatient (AMB) | payer BC, SELFPAY ==
--- OUTSIDE RECORDS SUMMARY | 2025-04-04 11:20 | XMS_ITS ---
Author Organization [facility] Address [address] [place] [address] Care Team Providers Care Gin Feeder Name Role Phone IKM PELAYO Primary Care Provider Phillip Kenny [phone] REASON FOR VISIT Patient presents today for COLON SCREENING Encounters Encounter Location Date Provider Diagnosis [facility] [address] [place] [address] 04/04/2025 Phillip Orozco Plan Of Treatment Next Appt Details Provider Name:Phillip Orozco , 08/08/2025 04:20:00 PM, [address], [address], [place], [address], Progress Notes * CARMELA GMSHARONADOB: 0 (65 yo F)Acc No.[id number]:04/04/2025 Progress Notes Patient: AYAD MATOS Provider: Myles Orozco MD :1960 A ge:64 Y S ex:Female Date:04/04/2025 Address:[address] [place] Pcp:KIM PELAYO Subjective: * Chief Complaints: * P atient presents today for COLON SCREENING * The named appointment provid er may or may not be the originator of this progress note, and it is not deemed complete until electronically signed by the appointment provider. Sign off status: Pending * Provider: Myles Orozco MD Date: 06/05/2024 Generated for Chas rogers/Paula/Michelleitting on: 11:50 AM EST
[2025-04-23 10:32] VITALS: BP 112/80; PULSE 102; O2SAT 97; BMI 31.5
--- NOTE | 2025-04-23 10:32 | MHC.OFFVIS ---
Vital Signs 04/23/25 10:32 Height 5 ft 7 in Weight 201 lb BMI 31.5 BP 112/80 Blood Pressure Location Lt brachial Position Sitting Pulse 102 H Pulse Source Pulse Oximeter Pulse Oximetry (%) 97 Oxygen Delivery Method Room Air Intake Visit Reasons: Obstructive sleep apnea Dinkey Locomotive Engineer Required: No National Account Manager: National Account Manager offered & declined Allergies No Known Allergies (No Known Allergies*) Allergy (Verified 04/23/25 10:35) HPI Comments Details: Cici is a pleasant 65 year old female, never smoker, with underlying SENTHIL. She was referred by PCP to manage SENTHIL after recent HST. She reports persistent fatigue and nonrestorative sleep with associated morning headaches, tossing and turning during sleep, and waking up frequently, including twice per night to urinate for years. Her sleep study from January 2025 revealed mild sleep apnea with an apnea-hypopnea index (AHI) of 8.7 events per hour. Her AHI was position-dependent, with values of 12 on her back, 15 on her left side, and 2 on her right side. The sleep study also showed nocturnal hypoxemia, with her lowest oxygen saturation at 83% and an average of 91%; she spent 25 minutes with oxygen saturation below 88%. The patient had a previous sleep study about 25 years ago and tried CPAP therapy at that time with a full-face mask. She used it consistently for about a month but found it miserable as she rolls over frequently, causing the mask seal to be lost, and eventually gave up on the treatment. The patient is a self-reported mouth breather. She reports having a cold at the time of the visit but denies any history of asthma, shortness of breath, coughing, or wheezing. She has never been a smoker. Pulmonology History - Previous sleep study approximately 25 years ago. - History of unsuccessful CPAP trial many years ago due to mask intolerance. - Recent sleep study in January showing mild obstructive sleep apnea (AHI 8.7) with nocturnal desaturation to 83%. - Denies personal history of asthma, chronic cough, shortness of breath, or wheezing. Results - Sleep Study (January): Showed mild sleep apnea with an apnea-hypopnea index (AHI) of 8.7 events per hour. - Positional AHI: 12 on her back, 15 on her left side, and 2 on her right side. - Oxygen Saturation: Lowest level was 83%, with an average of 91%; she was below 88% for 25 minutes. [facility] Medical History Tubular adenoma Severe obesity (BMI 35.0-35.9 with comorbidity) Obstructive sleep apnea Hair loss Thyroid nodule Hypothyroidism (acquired) Surgical History History of colonoscopy (~06/18/16) History of bladder surgery Hx of breast reduction, elective Family History (Updated 04/09/25 @ 16:21 by Miladys Vazquez MA) Father Diabetes Mother COPD (chronic obstructive pulmonary disease) Ulcerative colitis IBS (irritable bowel syndrome) Social History (Reviewed 04/23/25 @ 10:37 by Kiara Sanchez [facility]) Household Members: None Housing: [facility] Are you a primary home care liaison to a significant other at home: No Do you presently have visiting nurse or other home services: No 75 years or older and lives alone: No Alcohol intake: current Patient Tobacco Use Status: Never used Tobacco e-Cigarette/Vaping Use: Never Used service: No Current occupational status: retired Cognitive needs: No Hearing needs: No Vision needs: Yes (rx glasses) Review of Systems Narrative Const Denies chills, Denies excessive sweating, Denies fever(s), Denies headache(s) and Denies night sweats Eyes Denies dry eyes, Denies irritation and Denies itchy eyes ENT Reports Normal hearing present, Denies headache(s), Denies nasal congestion, Denies nasal discharge, Denies post nasal drip and Denies sore throat Card Denies chest pain, Denies chest pain at rest, Denies chest pain with activity, Denies claudication, Denies leg edema, Denies dyspnea, Denies dyspnea on exertion, Denies orthopnea and Denies paroxysmal nocturnal dyspnea Resp Denies chest congestion, Denies cough, Denies excessive phlegm production, Denies pain on inspiration, Denies pain with cough, Denies dyspnea, Denies dyspnea on exertion, Denies stridor and Denies wheezing Musc Denies myalgias Neuro Reports Normal hearing present and Denies headache(s) Endo Denies excessive sweating Afshin/Lymph Denies lymphadenopathy Aller/Immun Denies itchy eyes, Denies seasonal rhinorrhea and Denies wheezing Physical Exam Exam Exam: Vital Signs: Last Vital Signs Pulse 102 H 04/23/25 10:32 BP 112/80 04/23/25 10:32 Pulse Ox 97 04/23/25 10:32 Oxygen Delivery Method Room Air 04/23/25 10:32 BMI result Body Mass Index 31.5 Const General: cooperative, healthy appearing, comfortable, no acute distress, well developed and alert Nutritional Appearance: obese Orientation/consciousness: patient oriented x3 Limitations: no limitations HEENT Head: Yes normal to inspection, Yes normocephalic and Yes atraumatic Ears: hearing grossly normal bilaterally and external ears normal Eyes General: appearance normal, both eyes and all related structures Eyelids: Yes eyelids normal Sclerae: sclerae normal EOM: EOMs intact bilaterally Neck Neck: Yes normal visual inspection and Yes no lymphadenopathy Lymphatic: no lymphadenopathy noted Chest Chest palpation & inspection: normal inspection of the chest Resp Effort & Inspection: normal respiratory effort, able to speak in complete sentences, no audible wheezes, no cough, no stridor, not tachypneic, no tripod positioning and no use of accessory muscles Auscultation: clear to auscultation bilaterally Cardio Jugular venous distension: no JVD Rate: regular rate Rhythm: regular rhythm Skin Other: warm, dry General skin exam: no rashes or lesions noted Neuro General: patient oriented x3 Cranial nerves: Yes Normal hearing present Cognition (Neuro): normal cognition Gait exam (Neuro): Normal gait present Extrem General: Yes normal to inspection, Yes capillary refill normal, Yes no clubbing, cyanosis or edema and Yes no pedal edema Psych Appearance: grossly normal and well kempt Speech and movement: Normal speech and movement present and Clear speech present Affect: normal affect Attitude: cooperative Thought process: Normal thought process present Thought content: Normal thought content present Insight: Good insight present (Psych) Judgement: Good judgement present (Psych) Assessment & Plan Assessment & Plan (1) Obstructive sleep apnea: Code(s): G47.33 - Obstructive sleep apnea (adult) (pediatric) Category: Medical (2) Nocturnal hypoxemia: Code(s): G47.34 - Idiopathic sleep related nonobstructive alveolar hypoventilation Category: Medical Plan The patient has mild obstructive sleep apnea (AHI 8.7) with significant symptoms of fatigue and morning headaches. She is motivated to retry CPAP therapy after a previous unsuccessful trial. A prescription for CPAP therapy in APAP mode with pressures 6-16 cmH2O will be sent to DME. She was educated on the importance of finding a comfortable mask during the 90-day trial period, with discussion of a full-face mask versus a nasal mask with a chin strap, given that she is a mouth breather. Insurance compliance goals of using the CPAP for at least 4 hours per night, 70% of the time, were explained. A follow-up appointment is scheduled in 10-12 weeks to review compliance and efficacy data. The patient's sleep study showed nocturnal desaturations to 83% and 25 minutes spent below 88% saturation, which may resolve with CPAP therapy. An at-home overnight oximetry test will be ordered after the next follow-up to assess oxygen levels while using the CPAP machine. If hypoxemia persists despite CPAP use, an in-lab sleep study for formal titration will be recommended. All questions were answered and patient is in agreement of plan. Will follow up in 10-12 weeks or sooner if needed. Patient Instructions - You have mild sleep apnea, which is a likely cause of your persistent fatigue. - We are ordering a CPAP machine for you to use nightly. It may take 4 to 6 weeks to arrive. - The [facility] will contact you to set up your equipment and provide an in-person tutorial. - It is very important to find a comfortable mask. You have a 90-day trial period to try different masks, so please contact the [facility] if the first one does not work well for you. - To meet insurance requirements, you must use the CPAP machine for at least 4 hours per night, on at least 70% of nights (about 5 nights per week). - We will check your oxygen levels with another at-home test after you have been using the CPAP for some time. - Please schedule a follow-up appointment in our office for 10 to 12 weeks from now. - Please call our office if you have any trouble getting your equipment or have any questions or concerns. Coding Level of Care Code New Pt Level 4 (46284) Diagnoses Obstructive sleep apnea G47.33 Nocturnal hypoxemia G47.34
--- OUTSIDE RECORDS SUMMARY | 2025-04-23 11:50 | XMS_ITS | Patient Health Record ---
Author Organization [facility] Address [address] [place] [address] Care Team Providers Care Boat Worker Name Role Phone KIM PELAYO Primary Care Provider Phillip Kenny [phone] Reason For Referral No Information Encounters Encounter Location Date Provider Diagnosis [facility] [address] [place] [address] 04/02/2025 Phillip Orozco Plan Of Treatment Next Appt Details Provider Name:Phillip Orozco , 08/08/2025 04:20:00 PM, [address], [address], [place], [address], Insurance Providers Payer Name Payer Address Payer Phone Subscriber Number Group Number Insured Name Patient Relationship to Insured Coverage Start Date Coverage End Date [facility] [address] [place] [address] [phone] [id number] [id number] MG Self - patient is the insured
== END 2025-04-23 11:03 | disposition home or self-care (01) ==
LOC: HO.HPS 10:27
PROVIDERS: PCP Physician Assistant; Referring Provider Physician Assistant; Visit Provider Nurse Practitioner Family
DX: G47.33 Obstructive sleep apnea (adult) (pediatric) (principal); G47.34 Idiopathic sleep related nonobstructive alveolar hypoventilation
CPT/HCPCS: 99204